=== PATIENT | male | born 1970 | race Caucasian/White ===

== ENCOUNTER 2019-03-10 12:06 | Emergency (ER) | payer MEDICAID ==
[2019-03-10] MEDS: HYDROCODONE/APAP (10/325) TAB PO (14:16)
[2019-03-10] MEDS: BUPIVACAINE 0.5% (SDV) 30 ML INJ INJ (15:47)
[2019-03-10] MEDS: LIDOCAINE 1% (MDV) 20 ML INJ SC (15:47)
== END 2019-03-10 18:55 | disposition home or self-care (01) ==
LOC: E/R 12:06
DX: S52.502A Unspecified fracture of the lower end of left radius, initial encounter for closed fracture (principal); S52.612A Displaced fracture of left ulna styloid process, initial encounter for closed fracture; V49.49XA Driver injured in collision with other motor vehicles in traffic accident, initial encounter
CPT/HCPCS: 73110; 73110-LT; 73130-LT; 99283-25